=== PATIENT | female | born 1950 | race African-American/Black ===

== ENCOUNTER → 2019-03-05 | Outpatient (CLI) | payer MEDICARE, OTHER ==
[~2019-03-05] MED LIST: AMLO5TAB10 PO; ASPI-515 PO; PRED2.5T PO
== END | disposition home or self-care (01) ==
LOC: CFH 07:53
PROVIDERS: ATTEND Family Medicine
DX: I08.8 Other rheumatic multiple valve diseases (principal); I10 Essential (primary) hypertension; Z87.891 Personal history of nicotine dependence
CPT/HCPCS: 93306